=== PATIENT | male | born 1960 | race Caucasian/White ===

== ENCOUNTER 2022-06-08 15:37 | Emergency (ER) | payer OTHER ==
[~2022-06-08] VITALS: Ht 182.9 cm; Wt 108.9 kg
--- NOTE | 2022-06-08 15:44 | NUR ---
BIBA BED 12
[2022-06-08 15:48] VITALS: BP 116/60
[2022-06-08] MEDS ORDERED: NACL 0.9% 1,000 ML IV ONE (16:00)
[2022-06-08 16:25] LABS: BASOPHILS % (AUTO) 0.7 % (0.0-2.0); EOSINOPHILS # (AUTO) 0.1 K/uL (0-0.4); EOSINOPHILS % (AUTO) 1.5 % (0.0-4.0); HEMATOCRIT 35.6 % (36-52); HEMOGLOBIN 12.2 g/dL (12.0-18.0); LYMPHOCYTES # (AUTO) 2.1 K/uL (2.0-11.5); LYMPHOCYTES % (AUTO) 40.9 % (20.5-51.1); MEAN CORPUSCULAR HEMOGLOBIN 30 pg (27-31); MEAN CORPUSCULAR HGB CONC 34 g/dL (33-37); MEAN CORPUSCULAR VOLUME 86.6 fL (80-94); MONOCYTES # (AUTO) 0.3 K/uL (0.8-1.0); MONOCYTES % (AUTO) 5.4 % (1.7-9.3); NEUTROPHILS # (AUTO) 2.6 K/uL (1.8-7.7); NEUTROPHILS % (AUTO) 51.5 % (42.2-75.2); PLATELET COUNT (AUTO) 236 K/uL (140-450); RED BLOOD CELL COUNT(AUTO) 4.11 MIL/uL (4.20-6.10); RED CELL DISTRIBUTION WIDTH 12.7 % (11.6-13.7)
--- NOTE | 2022-06-08 16:44 | NUR ---
PT TAKEN TO CT VIA BRADY
[2022-06-08 16:53] LABS: ALBUMIN 4.1 g/dL (3.4-5.0); ANION GAP 13.6 (8-16); CARBON DIOXIDE 25.5 mmol/L (21-32); CREATININE 0.9 mg/dL (0.6-1.3); POTASSIUM 3.1 mmol/L (3.5-5.1); TOTAL BILIRUBIN 0.3 mg/dL (0.0-1.0)
--- NOTE | 2022-06-08 16:56 | NUR ---
PT RETURN FROM CT
[2022-06-08] MEDS ORDERED: POTASSIUM CHLORIDE 10 MEQ TABER PO ONE ×2 (17:05→17:16)
--- NOTE | 2022-06-08 18:30 | NUR ---
PT WAS SEEN WALKING TO THE BATHROOM BUT NEVER RETURNED TO ROOM. SECURITY CALLED FOR ASSISTANCE TO LOOK FOR HIM IN HOSPITAL.
--- NOTE | 2022-06-08 18:44 | NUR ---
SPOKE TO NELDA BRICENO, INFORMED OF PT ELOPEMENT FROM FACILITY WITH IV IN THE RIGHT AC, 18G
--- NOTE | 2022-06-08 18:55 | NUR ---
SPOKE TO TAISHA REGARDING PT ELOPEMENT WITH IV ACCESS, INFORMED THAT IF PT IS FOUND, THEY MAY REPORT TO ER FOR REMOVAL, THEY MAY CALL ESEQUIEL BRICENO FOR INFORMATION
--- NOTE | 2022-06-08 19:01 | NUR ---
[employer] Sissy SCHOFIELD HERE. INFORMED HIM OF INCIDENT, PT INTOXICATED AND ELOPED FROM FACILITY WITH IV. REPORT #[id number]
== END 2022-06-08 18:30 | disposition left against medical advice (07) ==
LOC: MED 15:37
DX: F10.20 Alcohol dependence, uncomplicated (principal); Z20.822 Contact with and (suspected) exposure to COVID-19; E87.6 Hypokalemia; Y90.9 Presence of alcohol in blood, level not specified
CPT/HCPCS: 36415; 70450; 80053; 83605; 83735; 84100; 85025; 87426; 93005; 96360; 99285; G0482; J7030